=== PATIENT | male | born 1960 | race Caucasian/White ===

== ENCOUNTER 2019-12-11 09:20 | Emergency (ER) | payer OTHER ==
--- NOTE | 2019-12-11 11:01 | EDM.PDOC ---
ED HPI GENERAL MEDICAL PROBLEM - General Stated Complaint: L GROIN Time Seen by Provider: 12/11/19 10:20 Source of Information: Reports: Patient History Limitations: Reports: No Limitations - History of Present Illness INITIAL COMMENTS - FREE TEXT/NARRATIVE: This is a 59 M here for a red irritation of the groin creases b/l. He notes the area very tender and painful. 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 Duration: Day(s):, Getting Worse Quality: Reports: Burning Severity: Moderate Worsens with: Reports: Movement Associated Symptoms: Reports: Rash - Related Data Home Meds: Home Meds Nystatin [Nystatin Crm] 30 gm TOP QID 7 Days #1 tube 12/11/19 [Rx] ED ROS GENERAL - Review of Systems Review Of Systems: Comprehensive ROS is negative, except as noted in HPI. ED EXAM, SKIN/RASH Exam: See Below Exam Limited By: No Limitations General Appearance: Alert, WD/WN, No Apparent Distress Eye Exam: Bilateral Eye: EOMI Ears: Normal External Exam Nose: Normal Inspection Throat/Mouth: Normal Inspection Head: Atraumatic, Normocephalic Respiratory/Chest: No Respiratory Distress Cardiovascular: Normal Peripheral Pulses GI/Abdominal: Normal Bowel Sounds Back Exam: Normal Inspection Extremities: Normal Inspection Neurological: Alert, Oriented Psychiatric: Normal Affect, Normal Mood Skin: Rash, Other (red inflamed b/l groin crease left greater than right) Departure - Departure Time of Disposition: 10:30 Disposition: Home, Self-Care 01 Condition: Good Clinical Impression: Yeast infection of the skin - Discharge Information Prescriptions: Nystatin [Nystatin Crm] 30 gm TOP QID 7 Days #1 tube Instructions: Genital Yeast Infection, Male Additional Instructions: Use cream twice a day. Try to air the areas out at night. wash gently and pat dry before applying cream. No follow up needed. - Problem List & Annotations (1) Yeast infection of the skin SNOMED Code(s): 02873776 Code(s): B37.2 - CANDIDIASIS OF SKIN AND NAIL Status: Acute Current Visit : Yes - Problem List Review Problem List Initiated/Reviewed/Updated: Yes - Assessment/Plan Plan: Counseled on care and management of symptoms. Discussed f/u with PCP as needed and rtc or ER if symptoms persist or worsen.
== END 2019-12-11 10:40 | disposition home or self-care (01) ==
LOC: LB.ED 09:20
DX: B37.2 Candidiasis of skin and nail (principal)
CPT/HCPCS: 99283